=== PATIENT | female | born 1955 | race Caucasian/White ===

== ENCOUNTER 2021-04-30 07:20 | Day surgery (SDC) | payer OTHER ==
[2021-04-30] MEDS ORDERED: CEFAZOLIN SODIUM IN 0.9 % NACL 2 GM/100 ML BAG IV ONE ×2 (07:32→07:33)
[2021-04-30] MEDS ORDERED: LACTATED RINGERS 1,000 ML IV ONE ×3 (07:42→14:25)
[2021-04-30] MEDS ORDERED: BUFFERED LIDOCAINE 10 ML SYRINGE ONE (08:26)
[2021-04-30] MEDS ORDERED: MORPHINE 2 MG/ML CARPUJECT IVP PRN (09:56)
[2021-04-30] MEDS ORDERED: NALOXONE 0.4 MG/ML VIAL IVP PRN (09:56)
[2021-04-30] MEDS ORDERED: ATROPINE ABBOJECT 1 MG/10 ML SYRINGE IVP PRN (09:56)
[2021-04-30] MEDS ORDERED: METOCLOPRAMIDE 10 MG/2 ML VIAL IVP PRN (09:56)
[2021-04-30] MEDS ORDERED: fentaNYL 100 MCG/2 ML VIAL IVP PRN (09:56)
[2021-04-30] MEDS ORDERED: ePHEDrine 50 MG/ML VIAL IVP PRN (09:56)
[2021-04-30] MEDS ORDERED: HYDROmorphone 0.5 MG/0.5 ML SYRINGE IVP PRN (09:56)
[2021-04-30] MEDS ORDERED: ONDANSETRON 4 MG/2 ML VIAL IVP PRN (09:56)
--- NOTE | 2021-04-30 09:56 | ANESTHESIA ---
Pre-Anesthesia VS, & Labs - Diagnosis L breast CA, Lobular - Procedure L breast lumpectomy w/preoperative needle localization and sentinal node biopsy Vital Signs: Temp Pulse Resp BP Pulse Ox 35.9 C L 64 14 140/86 H 97 04/30/21 07:44 04/30/21 07:44 04/30/21 07:44 04/30/21 07:44 04/30/21 07:44 Height: 5 ft 6 in Weight (kg): 71 kg Body Mass Index: 25.2 BMI Classification: Overweight - NPO >8 hours - Is Patient ?: No - Lab Results Lab results reviewed: Yes Home Medications and Allergies Home Medications: Ambulatory Orders hydroCHLOROthiazide [Hydrodiuril] 25 mg PO DAILY 04/25/21 Atorvastatin [Lipitor] 10 mg PO DAILY 04/27/21 hydroCHLOROthiazide [Hydrodiuril] 25 mg PO DAILY 04/25/21 Atorvastatin [Lipitor] 10 mg PO DAILY 04/27/21 Allergies/Adverse Reactions: Allergies Allergy/AdvReac Type Severity Reaction Status Date / Time No Known Drug Allergies Allergy Verified 04/25/21 14:47 Anes History & Medical History - Anesthetic History Anesthesia Complications: reports: No previous complications Family history of Anesthesia Complications: Denies Family history of Malignant Hyperthermia: Denies - Medical History Cardiovascular: reports: Hypertension Pulmonary: reports: None Gastrointestinal: reports: None Urinary: reports: None Musculoskeletal: reports: None Skin: reports: Other Smoking Status: Current every day smoker Psychosocial: reports: Alcohol, Cannabis History of Cancer?: Yes (L Breast) - Surgical History General: reports: Appendectomy Orthopedic: reports: Arthroscopic surgery Exam General: Alert, Oriented x3, Cooperative Dental: WNL Mouth Openin Fingerbreadth Neck Mobility: Normal Mallampati classification: II Thyromental Distance: 4-6 cm Respiratory: Lungs clear, Normal breath sounds, No respiratory distress Cardiovascular: Regular rate Neurological: Normal speech Mental/Cognitive Status: Alert/Oriented X3, Normal for patient Cognitive Status: Within normal limits Plan Anesthesia Type: General Consent for Procedure(s) Verified and Reviewed: Yes Code Status: Attempt Resuscitation ASA classification: 3-Severe systemic disease Is this case an emergency?: No
[2021-04-30] MEDS ORDERED: LACTATED RINGERS 1,000 ML IV SCH (10:00)
[2021-04-30] MEDS ORDERED: BUPIVACAINE 0.25% PF 30 ML VIAL ONE (10:57)
[2021-04-30] MEDS ORDERED: MIDAZOLAM 2 MG/2 ML VIAL ONE ×2 (12:25→13:40)
[2021-04-30] MEDS ORDERED: fentaNYL 100 MCG/2 ML VIAL ONE ×2 (12:25→13:04)
[2021-04-30] MEDS ORDERED: ACETAMINOPHEN 1,000 MG/100 ML 100 ML IV ONE (12:26)
[2021-04-30] MEDS ORDERED: PROPOFOL 200 MG/20 ML VIAL IVP ONE (12:26)
[2021-04-30] MEDS ORDERED: LIDOCAINE-MPF 2% 5 ML VIAL ONE (12:26)
[2021-04-30] MEDS ORDERED: BUPIVACAINE 0.25% PF 30 ML VIAL SUBQ ONE ×2 (13:01→14:08)
--- NOTE | 2021-04-30 14:22 | Nuclear Medicine Report ---
PROCEDURE: Lymph Node Scintigraphy INDICATIONS: LEFT BREAST CAN RADIOPHARMACEUTICAL: 0.5-1.0 mCi Millipore filtered Tc-99m sulfur colloid. TECHNIQUE: The area around the nipple was prepped and draped in a sterile fashion. Tc-99m sulfur colloid was in jected intra-dermally in the outer edge of the areola in the left breast. Images were obtained subse quently. A body contour outline was obtained. FINDINGS: There is a cluster of 4 lymph nodes in the ipsilateral axilla, which is marked on the skin and the im ages for referring physician. IMPRESSION: [place] lymph node gapping of the left breast for intra-operative sentinel lymph node lo calization. Reviewed by: Maye Starr MD on 04/30/2021 2:21 PM PDT Approved by: Maye Starr MD on 04/30/2021 2:21 PM PDT Station ID: [id number]
--- NOTE | 2021-04-30 14:30 | OPERATIVE REPORT ---
Operative Report - General Procedure Date: 04/30/21 Planned Procedure: Left lumpectomy with preoperative needle localization and left axillary sentinel lymph node biopsy Pre-Op Diagnosis: Left lobular breast carcinoma Procedure Performed: Left lumpectomy and left axillary sentinel lymph node biopsy Post Op Diagnosis: Same - Procedure Note Primary Surgeon: Erik Almonte MD Anesthesia Provider: Sridevi Caicedo CRNA Anesthesia Technique: General LMA, Local (30 mL of half percent Marcaine) IV Fluids (mL): 1,000 Estimated Blood Loss (mL): 100 Drain/Tube Type: Other (None.) Indications: As above. Complications: None. - Other Other Information/Narrative: After verbal and written informed consent was obtained detailing the operation, the alternatives the operation including no operation, risks of infection, bleeding requiring transfusion with its risks, nerve injury, and and after I met with the patient confirming the surgery and the site of surgery, the patient was brought to the operative suite and placed supine on the operating table. Great care was taken to avoid pressure points to prevent pressure necrosis or nerve injury. Monitoring devices were applied along with TEDs and pneumatic compression stockings (to prevent DVT). The patient received preoperative antibiotics for surgical prophylaxis. Sridevi Caicedo CRNA sedated and anesthetized the patient for the entire procedure. The patient was prepped and draped in the usual sterile manner. Regarding the laterality it was obvious with a wire coming out of the patient's breast and breast being marked but we confirmed it as well. A "time in" then confirmed that the patient was identified with 3 identifiers (name, date, and medical record number), the history and physical was updated and in the chart, the signed consent confirming the procedure was in the chart, the patient was in the correct position, the aforementioned prophylactic measures were in place or given, we had the correct personnel and equipment to complete the procedure and that anesthesia and the surgical team were given an opportunity to express any concerns. With the agreement of everyone in the room we proceeded with the operation. Prior to the operation I had met with the radiologist that he injected the tracer as well as place the wire and confirmed the location of the wire. The tracer showed that there was a in-transit lymph node. Prior to making an incision I used the catheter to reveal the area of greatest intensity. A incision was made at the inferior aspect of the axilla slightly anteriorly due to the in-transit nature of the lymph node that I was looking for and dissection was carried out down to the axilla proper using a combination of blunt dissection, Bovie electrocautery as well as sharp dissection with Metzenbaum scissors. Hemostasis was obtained using Bovie electrocautery. From the position of the incision, trying to find the in-transit lymph node was too dif ficult due to background activity and I turned my attention to the axilla. Examination with a counter revealed one area of that had in vivo 10-second activity of 16,938. This area was grasped using a Allis and the tissue including the Allis was excised using Bovie electrocautery. This tissue measured the size of a nickel. The neoprobe was used to determine the ex vivo activity which was 19,960. With this area excised the axilla did have background activity but it was not to the level of the preoperative or intraoperative levels. Hemostasis was obtained using Bovie electrocautery. The wound was copiously irrigated using warm sterile saline. The lesion itself was sent for pathologic evaluation. Subcutaneous tissues were approximated using interrupted 3-0 Vicryl sutures and the skin was approximated using a running 4-0 Monocryl. Attention was then directed to the breast. A curvilinear incision was made at the inferior aspect of the areolar skin border and dissection was carried out down to the subcutaneous tissues using Bovie electrocautery. Hemostasis was obtained using Bovie electrocautery. The wire was placed in a way that it traversed the breast going from the lateral aspect of the breast to the medial aspect of the breast and due to the soft nature of the wire this made following the wire particularly difficult. Superior and slightly anterior to the wire there was some additional tissue that appeared to have a lymph node within it and these areas were excised and marked with a short stitch superiorly long stitch laterally and double stitch deep and sent for pathologic evaluation. I felt this contained the in-transit lymph node that had been mentioned by radiology. The wire was then brought into the wound as opposed to going through the skin and tract to the area of interest. The area of concern was excised with a border including the wire and marked with a short stitch superiorly long stitch laterally and double stitch deep. Again, hemostasis was obtained using Bovie electrocautery. Once I received the confirmatory phone call from radiology indicating that the wire and the clip were present in the lesion sent to them, the wound was copiously irrigated with warm sterile saline. Hemostasis was again obtained using Bovie electrocautery. The subcutaneous tissues were approximated using a 3-0 Vicryl in interrupted fashion. The skin was approximated using a 4-0 Monocryl in the running subcuticular fashion. The skin was cleaned of its prep and Dermabond was applied to both incisions. At this point a timeout was performed that confirmed that all counts were correct x2, the procedure that was performed, the blood loss, the IV fluids administered, the patient's condition, and any concerns of the operating team had. Having tolerated the procedure well, the patient was taken recovery room in good and stable condition. The plan is for outpatient discharge when the patient is adequately recovered. This document was created in part using voice recognition technology. Because of the inherent limitations of the system, occasional same sounding word substitutions and grammatical errors do occur and persist despite proofreading. Please read this document for content.
--- NOTE | 2021-04-30 14:55 | ANESTHESIA POST OP EVALUATION ---
Anesthesia Post Eval - Post Anesthesia Eval Vitals: Last Vital Signs Temp 36.3 C L 04/30/21 14:46 Pulse 61 04/30/21 14:46 Resp 12 04/30/21 14:46 BP 148/79 H 04/30/21 14:46 Pulse Ox 98 04/30/21 14:46 CV Function Including HR & BP: Stable Pain Control: Satisfactory Nausea & Vomiting: Negative Mental Status: Baseline Respiratory Status: Airway Patent Hydration Status: Satisfactory Anesthesia Complications: None
[2021-04-30 15:27] VITALS: BP 131/74
--- NOTE | 2021-05-01 12:59 | Mammography Report ---
SPECIMEN LEFT BREAST: 04/30/2021 CLINICAL: Left breast specimen. Correlation is made to exams dated: 04/30/2021 localization, 04/30/2021 mammogram - [facility], 03/08/2021 breast MRI, 01/22/2021 ultrasound biopsy, 01/22/2021 mammogram, and 01/09/2021 [facility]. A lumpectomy specimen was imaged for the previous biopsy site located in the left breast at 6 o'cloc k posterior depth. This was described on the previous mammography, ultrasound, and biopsy reports. IMPRESSION: SPECIMEN The imaged specimen includes a biopsy clip and the distal portion of the localization wire. This exam was interpreted at Station ID: [id number]. Sawyer Alatorre jl/:04/30/2021 16:55:15 BI-RADS CATEGORY: () - RECOMMENDATION: (ADDMAM) - Recommend additional mammographic views. recall n/a LATERALITY: (B)
--- NOTE | 2021-05-01 12:59 | Ultrasound Report ---
ULTRASOUND GUIDED WIRE LOCALIZATION LEFT BREAST WITH POST DIGITAL MAMMOGRAPHIC IMAGIN04/30/2021 CLINICAL: Pre op wire localization with ultrasound. Correlation is made to exams dated: 03/08/2021 breast MRI, 01/22/2021 ultrasound biopsy, 01/22/2021 [facility] mogram, 01/09/2021 ultrasound, 01/09/2021 mammogram, and 12/27/2020 mammogram - [facility]. A wire localization using ultrasound guidance was performed for the marker clip located in the left b reast at 6 o'clock posterior depth. This was described on the previous ultrasound report. The skin was prepped in the usual manner. Local anesthetic was administered to the access site. A skin timothy was made in the breast. The localization was approached from the craniocaudal aspect. A wire was in serted into the targeted area under ultrasound guidance. A sterile dressing was applied to the acces s site. Post placement digital mammographic imaging demonstrates the tip traverses the targeted area . IMPRESSION: WIRE LOCALIZATION Wire localization for the marker clip in the left breast at 6 o'clock posterior depth was successful with no apparent post procedure complications. This exam was interpreted at Station ID: [id number]. Sawyer vinson/:04/30/2021 10:11:29 BI-RADS CATEGORY: () - RECOMMENDATION: (ADDMAM) - Recommend additional mammographic views. [id number] Immediate follow-up LATERALITY: (B)
--- NOTE | 2021-05-01 12:59 | Mammography Report ---
UNILATERAL LEFT DIGITAL DIAGNOSTIC MAMMOGRAM 3D/2D: 04/30/2021 CLINICAL: Pre op wire localization with ultrasound. Comparison is made to exams dated: 03/08/2021 breast MRI, 01/22/2021 mammogram, 01/09/2021 mammogram, 01/09/2021 ultrasound, 12/27/2020 mammogram, and 12/02/2018 ultrasound biopsy - [facility]. Current s tudy contains 2 films. There are scattered fibroglandular elements in left breast. There is a wire in the left breast at 6 o'clock posterior depth. This is demonstrated by prior biops y. This correlates with ultrasound findings and the biopsy. There is a biopsy clip associated with the wire. IMPRESSION: KNOWN BIOPSY PROVEN MALIGNANCY This exam was interpreted at Station ID: [id number]. NOTE: For mammograms, a report in lay terms will be sent to the patient. Approximately 15% of breast malignancies will not be visualized mammographically. In the management of a palpable breast mass, a negative mammogram must not discourage biopsy of a clinically suspicious lesion. Electronically Signed By: Sawyer Alatorre jl/:04/30/2021 10:15:41 ACR BI-RADS Category 6: Known biopsy proven malignancy [id number] PARENCHYMAL PATTERN: (A) - The breast(s) demonstrate(s) scattered fibroglandular densities. BI-RADS CATEGORY: (6) - 6 RECOMMENDATION: (ADDMAM) - Recommend additional mammographic views. recall n/a LATERALITY: (B)
== END 2021-04-30 07:21 | disposition home or self-care (01) ==
LOC: DI 07:20
PROVIDERS: ATTEND Surgery
PROC: 07B60ZX Excision of Left Axillary Lymphatic, Open Approach, Diagnostic (ICD-10-PCS; 2021-04-30)
PROC: 0HBU0ZZ Excision of Left Breast, Open Approach (ICD-10-PCS; principal; 2021-04-30 11:00)
DX: C50.812 Malignant neoplasm of overlapping sites of left female breast (principal); Z17.0 Estrogen receptor positive status [ER+]; F17.210 Nicotine dependence, cigarettes, uncomplicated; E78.5 Hyperlipidemia, unspecified; I10 Essential (primary) hypertension; Z79.899 Other long term (current) drug therapy; Z72.89 Other problems related to lifestyle
CPT/HCPCS: 19285; 78195

== ENCOUNTER 2021-06-25 09:26 | Day surgery (SDC) | payer OTHER ==
[~2021-06-25 09:26] MED LIST: CEFAZOLIN SODIUM IN 0.9 % NACL 2 GM/100 ML BAG IV ONE
[2021-06-25] MEDS ORDERED: BUPIVACAINE 0.25% PF 10 ML VIAL ONE (10:04)
[2021-06-25] MEDS ORDERED: ATROPINE ABBOJECT 1 MG/10 ML SYRINGE IVP PRN (10:21)
[2021-06-25] MEDS ORDERED: ONDANSETRON 4 MG/2 ML VIAL IVP PRN (10:21)
[2021-06-25] MEDS ORDERED: ePHEDrine 50 MG/ML VIAL IVP PRN (10:21)
[2021-06-25] MEDS ORDERED: MORPHINE 2 MG/ML CARPUJECT IVP PRN (10:21)
[2021-06-25] MEDS ORDERED: fentaNYL 100 MCG/2 ML VIAL IVP PRN (10:21)
[2021-06-25] MEDS ORDERED: HYDROmorphone 0.5 MG/0.5 ML SYRINGE IVP PRN (10:21)
[2021-06-25] MEDS ORDERED: METOCLOPRAMIDE 10 MG/2 ML VIAL IVP PRN (10:21)
[2021-06-25] MEDS ORDERED: NALOXONE 0.4 MG/ML VIAL IVP PRN (10:21)
--- NOTE | 2021-06-25 10:22 | ANESTHESIA ---
Pre-Anesthesia VS, & Labs - Diagnosis breast cancer - Procedure bilateral simple mastectomy Vital Signs: Temp Pulse Resp BP Pulse Ox 36.8 C 67 18 184/77 H 99 06/25/21 09:47 06/25/21 09:47 06/25/21 09:47 06/25/21 09:47 06/25/21 09:47 Height: 5 ft 6 in Weight (kg): 71 kg Body Mass Index: 25.2 BMI Classification: Overweight - NPO >8 hours - Is Patient ?: No - Lab Results Lab results reviewed: No Home Medications and Allergies Active Medications Atropine Sulfate (Atropine Abboject 1 Mg/10 Ml Syringe) 0.5 mg IVP Q5M PRN PRN Reason: Bradycardia Stop: 06/26/21 10:21 Ephedrine Sulfate (Ephedrine 50 Mg/Ml Vial) 10 mg IVP Q5M PRN PRN Reason: HYPOTENSION Stop: 06/26/21 10:21 Fentanyl (Fentanyl 100 Mcg/2 Ml Vial) 25 - 50 mcg IVP Q5M PRN PRN Reason: BREAKTHROUGH PAIN (2nd Choice) Stop: 06/26/21 10:21 Hydromorphone HCl (Hydromorphone 0.5 Mg/0.5 Ml Syringe) 0.2 - 0.6 mg IVP Q5M PRN PRN Reason: PAIN (First Choice) Stop: 06/26/21 10:21 Lactated Ringer's (Lr) 1,000 mls @ 100 mls/hr IV .Q10H FRANK Stop: 06/25/21 20:59 Metoclopramide HCl (Metoclopramide 10 Mg/2 Ml Vial) 10 mg IVP Q6HR PRN PRN Reason: N/V not relieved by Zofran Morphine Sulfate (Morphine 2 Mg/Ml Carpuject) 2 - 4 mg IVP Q5M PRN PRN Reason: PAIN (3rd Choice) Stop: 06/26/21 10:21 Naloxone HCl (Naloxone 0.4 Mg/Ml Vial) 0.1 mg IVP Q2M PRN PRN Reason: RESP RATE <8 Stop: 06/26/21 10:21 Ondansetron HCl (Ondansetron 4 Mg/2 Ml Vial) 4 mg IVP ONCE PRN PRN Reason: N/V (First Choice) Stop: 06/26/21 10:21 Scopolamine HBr (Scopolamine Patch) 1 patch TOP Q3D FRANK hydroCHLOROthiazide [Hydrodiuril] 25 mg PO DAILY 04/25/21 Atorvastatin [Lipitor] 10 mg PO DAILY 04/27/21 Allergies/Adverse Reactions: Allergies Allergy/AdvReac Type Severity Reaction Status Date / Time egg AdvReac Cramps Verified 06/25/21 09:53 Anes History & Medical History - Anesthetic History Anesthesia Complications: reports: No previous complications Family history of Anesthesia Complications: Denies Family history of Malignant Hyperthermia: Denies - Medical History Cardiovascular: reports: Hypertension Pulmonary: reports: None Gastrointestinal: reports: None Urinary: reports: None Musculoskeletal: reports: None Endocrine/Autoimmune: reports: None Skin: reports: Other Smoking Status: Current every day smoker - Surgical History General: reports: Appendectomy, Other Orthopedic: reports: Arthroscopic surgery Exam General: Alert, Oriented x3, Cooperative, No acute distress Dental: WNL Mouth Openin Fingerbreadth Neck Mobility: Normal Mallampati classification: I Respiratory: Lungs clear, Normal breath sounds, No respiratory distress, No accessory muscle use Cardiovascular: Regular rate, Normal S1, Normal S2, No murmurs Plan Anesthesia Type: General Consent for Procedure(s) Verified and Reviewed: Yes Code Status: Attempt Resuscitation ASA classification: 2-Mild systemic disease Is this case an emergency?: No
[2021-06-25] MEDS ORDERED: LACTATED RINGERS 1,000 ML IV ONE ×2 (10:23→13:33)
[2021-06-25] MEDS ORDERED: LIDOCAINE-MPF 2% 5 ML VIAL ONE (10:24)
[2021-06-25] MEDS ORDERED: ONDANSETRON 4 MG/2 ML VIAL ONE (10:24)
[2021-06-25] MEDS ORDERED: KETOROLAC 30 MG/ML VIAL ONE (10:24)
[2021-06-25] MEDS ORDERED: DEXAMETHASONE 4 MG/ML VIAL ONE (10:24)
[2021-06-25] MEDS ORDERED: MIDAZOLAM 2 MG/2 ML VIAL ONE (10:30)
[2021-06-25] MEDS ORDERED: BUPIVACAINE 0.25% PF 30 ML VIAL ONE ×2 (10:33→11:36)
[2021-06-25] MEDS ORDERED: LACTATED RINGERS 1,000 ML IV SCH (11:00)
[2021-06-25] MEDS ORDERED: SCOPOLAMINE PATCH TOP SCH (11:00)
[2021-06-25] MEDS ORDERED: BUPIVACAINE 0.5% PF 30 ML VIAL INFIL ONE ×2 (11:31)
[2021-06-25] MEDS ORDERED: fentaNYL 100 MCG/2 ML VIAL ONE (12:44)
--- NOTE | 2021-06-25 13:36 | OPERATIVE REPORT ---
Operative Report - General Planned Procedure: BILATERAL simple mastectomy Pre-Op Diagnosis: Multifocal LEFT breast lobular carcinoma with desire for prophylactic RIGHT Procedure Performed: BILATERAL simple mastectomy Post Op Diagnosis: Same. - Procedure Note Primary Surgeon: Erik Almonte MD Anesthesia Provider: Jay Smith CRNA Anesthesia Technique: General ET tube, Local (60 mL of 1/4% marcaine) IV Fluids (mL): 1,000 Estimated Blood Loss (mL): 100 Drain/Tube Type: Sukumar drain (19 Fr Sukumar drain placed in each axilla and coming across the chest wall) Indications: See above. Complications: None. - Other Other Information/Narrative: After verbal and written informed consent was obtained detailing the operation, the alternatives the operation including no operation, risks of infection, bleeding requiring transfusion with its risks, nerve injury, and and after I met with the patient confirming the surgery and the sites of surgery, the patient was brought to the operative suite and placed supine on the operating table. Great care was taken to avoid pressure points to prevent pressure necrosis or nerve injury. Monitoring devices were applied along with TEDs and pneumatic compression stockings (to prevent DVT). The patient received preoperative antibiotics for surgical prophylaxis. Jay Smith CRNA sedated and anesthetized the patient for the entire procedure. The patient was prepped and draped in the usual sterile manner. A "time in" then confirmed that the patient was identified with 3 identifiers (name, date, and medical record number), the history and physical was updated and in the chart, the signed consent confirming the procedure was in the chart, the patient was in the correct position, the aforementioned prophylactic measures were in place or given, we had the correct personnel and equipment to complete the procedure and that anesthesia and the surgical team were given an opportunity to express any concerns. With the agreement of everyone in the room we proceeded with the operation. The right side was addressed first he has it with the site that did not have confirmed cancer. Please note that the left-hand side was completely covered with surgical towels to isolate it from the right-hand side. An elliptical incision was made encompassing the nipple areolar complex. This was taken down to the subcutaneous level using Bovie electrocautery. Flaps were raised superiorly and inferiorly using Bovie electrocautery. Bleeders were controlled using Bovie electrocautery. Medially this was taken down to the sternal attachments of the pectoralis muscle, superiorly this was taken to just underneath the clavicle and inferiorly this was taken to the crease. Once the pectoralis could be seen on all 3 sides the breast was removed from the pectoralis major muscle using Bovie electrocautery. Laterally the resection proceeded up to but not into the axilla. Once the breast was excised this was marked with a long stitch laterally to help with pathologic identification. A 19 [place] Sukumar drain was placed laterally to come across the chest wall and secured to the skin using a 3-0 nylon suture which was Kali sandled about the drain. Great care was taken to ensure that the elliptical incision came back together to allow for a straight closure. The subcutaneous tissues were approximated using interrupted 2-0 Vicryl sutures. The skin incision was approximated with 4-0 Monocryl in a subcuticular fashion. The skin was cleaned of its prep and 1/2-inch Steri-Strips and Mastisol were applied. At this point a count was performed to ensure that the count was correct for the right-hand side before transitioning to the left-hand side. After closing the skin on the right-hand side the right hand side was completely covered with surgical towels and isolated from the left-hand side. An elliptical incision was made encompassing the nipple areolar complex as well as the previous biopsy incision. I could not make this incision include the axillary incision that was used for the sentinel lymph node biopsy. The breast incision was taken down to the subcutaneous level using Bovie electrocautery. Flaps were raised superiorly and inferiorly using Bovie electrocautery. Bleeders were controlled using Bovie electrocautery. Medially this was taken down to the sternal attachments of the pectoralis muscle, superiorly this was taken to just underneath the clavicle and inferiorly this was taken to the crease. Once the pectoralis could be seen on all 3 sides the breast was removed from the pectoralis major muscle using Bovie electrocautery. Laterally the resection proceeded up to but not into the axilla. Once the breast was excised this was marked with a long stitch laterally and a short stitch superiorly to help with pathologic identification. A 19 [place] Sukumar drain was placed laterally to come across the chest wall and secured to the skin using a 3-0 nylon suture which was Kali sandled about the drain. Great care was taken to ensure that the elliptical incision came back together to allow for a straight closure. The subcutaneous tissues were approximated using interrupted 2-0 Vicryl sutures. The skin incision was approximated with 4-0 Monocryl in a subcuticular fashion. The skin was cleaned of its prep and 1/2-inch Steri- Strips and Mastisol were applied. Both drains were placed to bulb suction. At this point a timeout was performed that confirmed that all counts were correct x2, the procedure that was performed, the blood loss, the IV fluids administered, the patient's condition, and any concerns of the operating team had. Having tolerated the procedure well, the patient was taken recovery room in good and stable condition. The plan is for outpatient discharge when the patient is adequately recovered. This document was created in part using voice recognition technology. Because of the inherent limitations of the system, occasional same sounding word substitutions and grammatical errors do occur and persist despite proofreading. Please read this document for content.
[2021-06-25] MEDS ORDERED: HYDROmorphone 0.5 MG/0.5 ML SYRINGE ONE (13:51)
[2021-06-25] MEDS ORDERED: ACETAMINOPHEN 1,000 MG/100 ML 100 ML IV ONE ×2 (14:01→14:11)
--- NOTE | 2021-06-25 14:11 | ANESTHESIA POST OP EVALUATION ---
Anesthesia Post Eval - Post Anesthesia Eval Vitals: Last Vital Signs Temp 36.6 C 06/25/21 13:33 Pulse 71 06/25/21 14:05 Resp 12 06/25/21 14:05 BP 133/78 H 06/25/21 14:05 Pulse Ox 97 06/25/21 14:05 CV Function Including HR & BP: Stable Pain Control: Satisfactory Nausea & Vomiting: Negative Mental Status: Baseline Respiratory Status: Airway Patent Hydration Status: Satisfactory Anesthesia Complications: None
--- NOTE | 2021-06-25 14:50 | PHARMACY PROGRESS NOTE ---
- Best Possible Medication History Admit Date and Time: Processed by: Nursing Medication History completed: Yes Patient Interview: Completed As the person ultimately responsible for medication therapy, providers are able to order a medication from an existing home medication list in [facility] via the "Reconcile Routine" prior to Confirmation of that medication by direct support staff member. Such practice is discouraged except when the physician, in their clinical judgment, deems that a medical need exists for a medication without regard to previous use.
[2021-06-25] MEDS: HYDROcod/ACETAM 5/325 MG TABLET PO PRN (21:05)
[2021-06-26] MEDS ORDERED: SODIUM CHLORIDE FLUSH 0.9% 10 ML SYRINGE IVP PRN (07:02)
[2021-06-26] MEDS: HYDROcod/ACETAM 5/325 MG TABLET PO PRN ×2 (07:40→12:37)
--- NOTE | 2021-06-26 10:14 | PROVIDER PROGRESS NOTE ---
Subjective - General Procedure Date: 06/25/21 Post Op Days: 1 Procedure Performed: BILATERAL simple mastectomy - Review of Systems Wound/Incisions: positive: Healing well, Drainage (Serosanguinous in both 19 Fr Sukumar drains) Drain Type: 19 Fr Sukumar Drain Output Description: Serosanguinous slightly more sanguinous on LEFT General: positive: No symptoms HEENT: positive: No symptoms Pulmonary: positive: No symptoms Cardiovascular: positive: No symptoms Gastrointestinal: positive: No symptoms Genitourinary: positive: No symptoms Musculoskeletal: positive: No symptoms Skin: positive: No symptoms Psychiatric: positive: No symptoms All Other Systems: positive: Reviewed and negative Objective - Patient Data Reviewed Vital Signs: Yes Vital Signs: Vital Signs x48h Temp Pulse Resp BP Pulse Ox 06/26/21 07:36 36.5 C 58 L 17 118/65 97 06/26/21 04:00 36.6 C 56 L 18 122/66 97 Weight: Weight 06/24/21 06/25/21 06/26/21 23:59 23:59 23:59 Weight (kg) 71 kg Intake & Output: Intake and Output Totals x24h 06/24/21 06/25/21 06/26/21 23:59 23:59 23:59 Intake Total 1470 780 Output Total 580 100 Balance 890 680 - Current Medications Current Medications: Current Medications Generic Name Dose Route Start Last Admin Trade Name Freq PRN Reason Stop Dose Admin Hydrocodone Bitart/Acetaminophen 1 tab 06/25/21 13:28 06/26/21 07:40 Hydrocod/Acetam 5/325 Mg Tablet PO 1 tab Q4HR PRN Administration PAIN Scopolamine HBr 1 patch 06/25/21 11:00 06/25/21 15:31 Scopolamine Patch TOP Not Given Q3D FRANK Sodium Chloride 10 ml 06/26/21 07:02 06/26/21 07:40 Sodium Chloride Flush 0.9% 10 Ml Syringe IVP 10 ml PRN PRN Administration Per Line Care protocol - Physical Exam Wound/Incisions: positive: Healing well, Drainage (See above.), Other (Dressing replaced. Slight ecchymosis on LEFT. Well approximated. Steristrips in place.) General Appearance: positive: No acute distress, Alert Eyes Bilateral: positive: No lid inflammation, Conjunctivae nml, No scleral icterus Skin: positive: Color nml Extremities: positive: Non-tender, Nml appearance, No pedal edema Neurologic/Psychiatric: positive: Oriented x3, Motor nml, Sensation nml, Mood/affect nml ABX Reporting Has patient been on IV antibiotics over the past 48 hours?: Yes Impression/Plan - Problem List Problem List: Okay to discharge home. Reviewed instructions. Patient should see me in 1 week in my office for drain removal and review of her pathology (should be back by then). Discussed smoking cessation. I asked her to contact me with surgical questions or concerns.
[2021-06-26 11:44] VITALS: BP 117/64
== END 2021-06-26 12:45 | disposition home or self-care (01) ==
LOC: SDS 09:26 → MS2 14:21 → SDS 06-26 12:45
PROVIDERS: ATTEND Surgery
PROC: 0HTV0ZZ Resection of Bilateral Breast, Open Approach (ICD-10-PCS; principal; 2021-06-25 11:00)
DX: C50.812 Malignant neoplasm of overlapping sites of left female breast (principal); F17.210 Nicotine dependence, cigarettes, uncomplicated
CPT/HCPCS: 19303; A9270; J0131; J0690; J1170; J3490; J7120